=== PATIENT | female | born 1950 | race Caucasian/White ===

== ENCOUNTER 2018-12-10 15:04 | Emergency (ER) | payer OTHER ==
[~2018-12-10] VITALS: Ht 157.5 cm; Wt 104.3 kg
[2018-12-10 15:35] VITALS: BP 122/73
--- NOTE | 2018-12-10 15:43 | NUR ---
68 yr old F bib son with c/o bottom of rt foot "callous" swelling pain 10/10 x 4 months. Denies injury. Bl lower extremity +3 pitting edema unable to ambulate. PT STATES CALLOUS STARTED 4 MONTHS AGO AND HAS GOTTEN BIGGER AN [place] PAINFUL SINCE. CALLOUS 4 CM IN DIAMETER, GREEN IN COLOR WITH A SMALL PERFORATION IN THE MIDDLE. LEG IS SWOLLEN, WITH PITTING EDEMA ON THE AFFECTED SIDE. PT STATES PAIN 9/10. VSS; PATIENT POSITIONED FOR COMFORT; HOB ELEVATED; BEDRAILS UP X1; BED DOWN. ER MD MADE AWARE OF PT STATUS.
[2018-12-10] MEDS ORDERED: VANCOMYCIN 1GM/DEXT 5% PREMIX 200 ML IV ONE (15:50)
[2018-12-10] MEDS ORDERED: VANCOMYCIN PER PHARMACY MC PRN (15:50)
[2018-12-10] MEDS ORDERED: MORPHINE SULFATE 4 MG/ML SYR IVP ONE (16:00)
[2018-12-10] MEDS ORDERED: ONDANSETRON 4 MG/2 ML VIAL IVP ONE (16:00)
[2018-12-10] MEDS ORDERED: VANCOMYCIN 1,000 MG in DEXTROSE 5% 250 ML IV SCH (16:00)
[2018-12-10] MEDS ORDERED: VANCOMYCIN 1,000 MG VIAL ONE (16:09)
[2018-12-10 16:18] LABS: BASOPHILS # (AUTO) 0.1 K/uL (0.00-0.22); BASOPHILS % (AUTO) 0.7 % (0.0-2.0); EOSINOPHILS # (AUTO) 0.2 K/uL (0-0.4); EOSINOPHILS % (AUTO) 2.3 % (0.0-4.0); HEMOGLOBIN 10.7 g/dL (12.0-16.0); LYMPHOCYTES % (AUTO) 25.5 % (20.5-51.1); MEAN CORPUSCULAR HEMOGLOBIN 28 pg (27-31); MEAN CORPUSCULAR HGB CONC 32 g/dL (33-37); MEAN CORPUSCULAR VOLUME 87.8 fL (80-94); MONOCYTES # (AUTO) 0.8 K/uL (0.8-1.0); NEUTROPHILS # (AUTO) 4.9 K/uL (1.8-7.7); NEUTROPHILS % (AUTO) 61.5 % (42.2-75.2); PLATELET COUNT (AUTO) 234 K/uL (140-450); RED BLOOD CELL COUNT(AUTO) 3.75 MIL/uL (4.20-5.40); RED CELL DISTRIBUTION WIDTH 16.5 % (11.6-13.7)
[2018-12-10 16:47] LABS: ALBUMIN 3.5 g/dL (3.4-5.0); CREATININE 0.7 mg/dL (0.6-1.3)
[2018-12-10 16:59] LABS: TOTAL BILIRUBIN 0.4 mg/dL (0.0-1.0)
[2018-12-10 17:06] LABS: PROTHROMBIN TIME 10.3 secs (10.8-13.4)
--- NOTE | 2018-12-10 17:20 | NUR ---
RUI MONTANEZ CELL: [phone]
--- NOTE | 2018-12-10 18:00 | NUR ---
DEJA FROM [facility] RETURNED CALL. DR. WALTERS WILL ACCEPT PT AT [facility], [facility] WILL SET-UP TRANSPORT.
--- NOTE | 2018-12-10 19:10 | NUR ---
SPOKE WITH NORA FROM [facility], WILL HEAR BACK AT 1999 REGARDING PT TRANSPORT.
--- NOTE | 2018-12-10 20:00 | NUR ---
Patient to be transferred to [facility]. Is being transferred due to insurance request. Receiving facility has accepting physician and available space. ER physician has signed transfer form. Patient or responsible constitution party has agreed to transfer and signed form. Patient belongings inventoried and will be sent with patient. Copy of nursing notes, lab reports, EKG, Physicians Orders and X-rays to be sent with patient. Report called to Jorge Luis CHIN at receiving facility. [facility] ambulance service has been called for transfer. ETA is 45.
--- NOTE | 2018-12-10 20:05 | NUR ---
ASSISTED PT UP TO RESTROOM .
--- NOTE | 2018-12-10 21:02 | NUR ---
[facility] at bedside for transfer to [facility].
--- NOTE | 2018-12-10 21:06 | NUR ---
[facility] AT BEDSIDE FOR TRANSPORT, REPORT GIVEN TO TA; VSS, [id number].
[2018-12-10 21:09] VITALS: BP 114/61
== END 2018-12-10 21:06 | disposition short-term general hospital (02) ==
LOC: MED 15:04
DX: L03.115 Cellulitis of right lower limb (principal); I10 Essential (primary) hypertension
CPT/HCPCS: 36415; 71045; 73630; 80053; 83605; 85025; 85610; 85730; 87040; 93005; 96365; 96366; 96375; 99284; J2270; J2405; J3370; Q0092